=== PATIENT | male | born 1990 | race Caucasian/White ===

== ENCOUNTER 2025-02-07 12:54 | Outpatient (AMB) | payer BC, SELFPAY ==
--- NOTE | 2025-02-07 12:56 | MHC.PC.OV ---
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 Not on prescription medications. He was on antihypertensive and antidiabetic medication, including insulin until 6 years ago. 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 Prior PCP? - [facility] Last office visit/CPE/labs - 6 years ago Acute issue(s) - None Past Medical History - hypertension, type 2 diabetes, obesity, alcohol use disorder Surgical History - Adenoidectomy Family History - Dad: Diabetes, alcohol abuse - PGM: Hypertension Social History - Former smoker, smoked 0.5pd x 5-6 years, quit 4 years. Drinks 2-3 beers twice monthly. Denies recreational drug use. Vapes marijuana occasionally - Generally makes healthy dietary choices but eat large portions, consumes significant amount of salt and drinks 2 energy drinks daily. Active but does not exercise. Denies difficulty falling or staying asleep; sleeps 5-6 hours, snores, and never had a sleep study; declines referral for a sleep study Health maintenance - Last eye exam was several years ago. Referred to Ophthalmology for routine eye exam - Last dental visit was 5 years ago; encouraged to schedule an appointment with his dentist for routine dental care - Last tetanus vaccine was more than 10 years ago; declines Tdap - Has not been vaccinated for the flu this season; declines vaccination Specialists - None [facility] Medical History (Updated 02/07/25 @ 14:19 by Sherwin Waller CNP) Alcohol abuse High blood pressure Surgical History (Updated 02/07/25 @ 13:17 by Nasra Perales MA) History of adenoidectomy Family History (Updated 02/07/25 @ 13:14 by Nasra Perales MA) Father Alcohol abuse Diabetes Paternal Grandmother High blood pressure Social History (Updated 02/07/25 @ 13:05 by Nasra Perales MA) Housing: House Patient Tobacco Use Status: Never used Tobacco e-Cigarette/Vaping Use: Currently Using (meryjuana) Second Hand Smoke Exposure: No Substance Use Type: Marijuana service: No Current occupational status: employed 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 1. Little interest or pleasure in doing things: not at all 2. Feeling down, depressed, or hopeless: not at all 3. Trouble falling or staying asleep, or sleeping too much: not at all 4. Feeling tired or having little energy: several days 5. Poor appetite or overeating: nearly every day 6. Feeling bad about yourself - or that you are a failure or have let yourself or your family down: not at all 7. Trouble concentrating on things, such as reading the newspaper or watching television: not at all 8. Moving or speaking so slowly that other people could have noticed. Or the opposite - being so fidgety or restless that you have been moving around a lot more than usual: not at all 9. Thoughts that you would be better off or of hurting yourself in some way: not at all Total score: 4 Depression Screening Interpretation: Negative Depression Screening Done: Yes 65922 - PHQ-9 Billing: Yes Source: Developed by Drs. Humberto Nelson, Srhuthi Skelton, Valentín Hooks and colleagues, with an educational abdias from [employer]. Thrive Questionnaire Date Thrive assessed: 02/07/25 I am a: Patient What is your living situation today?: I have a steady place to live Within the past 12 months, did the food you bought not last and you didn't have the money to get more?: Never true Within the past 12 months, did you worry whether your food would run out before you got money to buy more?: Never true Do you have trouble paying for medicines?: No Do you have trouble getting transportation to medical appointments?: No Do you have trouble paying your heating and electricity bill?: No Do you have trouble taking care of your child, family member or friend?: No Do you have trouble with day-to-day activities such as bathing, preparing meals, shopping, managing finances, etc.?: No Are you currently unemployed and looking for a job?: No Are you interested in more education?: No Please select the resources that you would like help with: None Currently or been in a relationship where the following occur: No concerns reported THRIVE Score: 0 AUDIT C Alcohol Use Questionnaire (AUDIT-C) 1. How often do you have a drink containing alcohol?: Never 3. How often do you have six or more drinks on one occasion?: Never Total Score: 0 Score Reviewed/Action Taken: Yes TALON-7 AMB Questionnaire TALON-7 Date TALON - 7 assessed: 02/07/25 Feeling nervous, anxious, or on edge: 0 = Not at all Not being able to stop or control worryin = Not at all Worrying too much about different things: 0 = Not at all Trouble relaxin = Not at all Being so restless that it is hard to sit still: 0 = Not at all Becoming easily annoyed or irritable: 0 = Not at all Feeling afraid as if something awful might happen: 0 = Not at all Total TALON-7 score (0-4 normal; 5-9 mild; 10-14 moderate; 15-21 severe): 0 Source: Developed by Drs. Humberto Nelson, Shruthi Skelton, Valentín Hooks and colleagues, with an educational abdias from [employer]. TALON-7 Assessment Billing TALON-7 Assessment Tool: TLAON-7 Assessment 10147 Review of Systems Const Details: Denies chills, Denies fatigue, Denies fever(s), Denies headache(s) and Denies weakness HEENT Denies change in vision, Denies dizziness, Denies headache(s), Denies hearing loss, Denies nasal congestion, Denies sinus pain, Denies sinus pressure and Denies sore throat Card Denies chest pain, Denies lightheadedness, Denies dyspnea and Denies other (palpitations) Resp Denies cough, Denies dyspnea and Denies wheezing GI Denies abdominal pain, Denies melena, Denies hematochezia, Denies change in bowel habits, Denies dyspepsia and Denies nausea Denies hematuria and Denies dysuria Musc Denies abnormal gait, Denies myalgias, Denies arthralgias, Denies numbness and Denies tingling Skin/Breast Denies rash, Denies unusual bruising and Denies wounds Neuro Denies abnormal gait, Denies dizziness, Denies headache(s), Denies memory loss, Denies numbness, Denies Sensory deficit (Neuro), Denies tingling and Denies weakness Psych Denies anxiety, Denies depression and Denies memory loss Endo Denies cold intolerance, Denies fatigue, Denies heat intolerance, Denies polydipsia and Denies polyuria Christopher/Lymph Denies easy bleeding and Denies easy bruising Aller/Immun Denies wheezing Physical exam (Primary Care) Vital Signs: Last Vital Signs Temp 98.5 F 02/07/25 13:05 Pulse 68 02/07/25 13:05 Resp 16 02/07/25 13:05 BP 134/77 02/07/25 13:05 Pulse Ox 98 02/07/25 13:05 Oxygen Delivery Method Room Air 02/07/25 13:05 BMI result Body Mass Index 40.1 Tobacco/Smoking Status: Tobacco use Status Tobacco use date assessed 02/07/25 02/07/25 13:05 Patient Tobacco Use Status Never used Tobacco 02/07/25 13:05 e-Cigarette/Vaping Use Currently Using (meryjuana) 02/07/25 13:05 PHQ-9: PHQ-9 Score PHQ-9: Total score 4 02/07/25 13:01 Depression Screening Interpretation: Negative Thrive Assessment: Date of Thrive Assessment Date Thrive assessed 02/07/25 02/07/25 13:01 Currently or been in a relationship where the following occur: No concerns reported Const Other: General: no acute distress, well developed, alert and awake Nutritional Appearance: well nourished Orientation/consciousness: patient oriented x3 HENMT Head: Yes normocephalic and Yes atraumatic Ears: hearing grossly normal bilaterally and TM's normal bilaterally General nose exam: Normal external nose present and Normal nares present Mouth: Normal oral and palatal mucosa present and moist mucous membranes Teeth and gingiva: dentition normal Throat: Yes oropharynx normal Eyes Pupils: Equal, round and reactive pupils present and Pupil accommodation reflex normal EOM: EOMs intact bilaterally Neck Neck: Yes normal visual inspection, Yes no lymphadenopathy and Yes trachea midline Thyroid: Thyroid normal Carotids: no bruits Lymphatic: no lymphadenopathy noted Chest Chest palpation & inspection: normal inspection of the chest Resp Effort & Inspection: normal respiratory effort Auscultation: clear to auscultation bilaterally Cardio Rate: regular rate Rhythm: regular rhythm Heart sounds: S1 normal heart sound present, S2 normal heart sound present, no gallops, no murmurs and no rubs Bruits: no abdominal aortic bruits and no carotid bruits GI Palpation (GI): No Abdominal aortic bruit present, Soft to palpation, nontender, No hepatosplenomegaly present and No Rebound tenderness present Auscultation: normal bowel sounds General: Yes no CVA tenderness Back/Spine/Pelvis Back: no CVA tenderness Cervical Spine: cervical ROM normal and No Cervical spine tenderness Thoracic/Lumbar Spine: thoraco-lumbar ROM normal, No pain with thoraco-lumbar ROM, No thoracic spinal tenderness and No lumbar spinal tenderness Skin General: warm and dry. Normal skin color. Normal skin turgor Lesions: no lesions Rashes: no rashes Trauma: no lacerations or abrasions Wounds: no wounds Nails: normal Neuro General: patient oriented x3, gait normal and CN's II-XI intact bilaterally Cranial nerves: Yes Equal, round and reactive pupils present Cognition (Neuro): normal cognition Gait exam (Neuro): Normal gait present Motor exam (neuro): 5/5 motor strength present throughout Sensory Exam: No Sensory deficit (Neuro) Deep tendon reflexes (DTR's): Right patellar reflex intensity grade: 2+ and Left patellar reflex intensity grade: 2+ Extrem General: Yes normal to inspection, No edema and No calf tenderness Psych Appearance: grossly normal Affect: normal affect Attitude: cooperative Thought process: Normal thought process present Results AMB Hemoglobin A1c AMB Hemoglobin A1c 5.3 % Last Edit by Nasra Perales MA on 02/07/25 14:14 Coding Level of Care Code New Pt Level 4 (98104) New Pt Prev Care 18-39yr(23430 Diagnoses Normal physical examination, routine Z00.00 High blood pressure I10 Type 2 diabetes mellitus E11.9 Morbid obesity with BMI of 40.0-44.9, adult E66.01; Z68.41 Snoring R06.83 Laboratory tests ordered as part of a complete physical exam (CPE) Z00.00 Additional Codes TALON-7 Assessment Billing - TALON-7 Assessment Tool: TALON-7 Assessment 47532 ([id number]) PHQ-9 - 55605 - PHQ-9 Billing: Yes ([id number]) Assessment & Plan Assessment & Plan (1) Normal physical examination, routine: Code(s): Z00.00 - Encounter for general adult medical examination without abnormal findings Category: Medical Plan: No significant functional limitation noted. Healthy diet and routine exercise encouraged. Perform lab work and follow-up for a telehealth visit for labs review in 2-4 weeks. Return sooner with symptoms or concerns. Verbalized understanding and agreed with the plan. (2) High blood pressure: Code(s): I10 - Essential (primary) hypertension Category: Medical Plan: Resting blood pressure is 134/77, slightly above goal of less than 130/80, good control since A1c is 5.3%. He consumes significant amount of salt. Routine exercise and low-sodium diet encouraged. Verbalized understanding and agreed with the plan. (3) Type 2 diabetes mellitus: Code(s): E11.9 - Type 2 diabetes mellitus without complications Category: Medical Plan: A1c today is 5.3%, within goal of less than 7.0%. Excessive alcohol drinking may have been the culprit for his diabetes. He has been sober for the past 4 years. ADA diet and routine exercise encouraged. Referred to Ophthalmology for diabetic eye exam. Will recheck A1c in 3 months. Verbalized understanding and agreed with the plan. (4) Morbid obesity with BMI of 40.0-44.9, adult: Code(s): E66.01 - Morbid (severe) obesity due to excess calories; Z68.41 - Body mass index [BMI] 40.0-44.9, adult Category: Medical Plan: He currently weighs 287 lb, BMI is 40.1. He generally makes healthy dietary choices but eat large portions, consumes significant amount of salt and drinks 2 energy drinks daily. Active but does not exercise. Declines referral to client care coordinator/dietitian or weight management clinic and notes he will make healthy lifestyle changes. Healthy diet and routine exercise encouraged. Follow-up as needed. Verbalized understanding and agreed with the plan. (5) Snoring: Code(s): R06.83 - Snoring Category: Medical Plan: Denies difficulty falling or staying asleep; sleeps 5-6 hours, snores, and never had a sleep study; Declines referral for a sleep study. Instructed on sleep hygiene. Follow-up as needed. Verbalized understanding and agreed with the plan. (6) Laboratory tests ordered as part of a complete physical exam (CPE): Code(s): Z00.00 - Encounter for general adult medical examination without abnormal findings Category: Medical Plan: Fasting labs ordered as part of a complete physical exam. Advised to fast for at least 10 hours before getting labs drawn. May drink water Verbalized understanding and agreed with treatment plan. Orders: Orders UA CC w/rflx Micro + Cult Today Z00.00 - Encounter for general adult medical examination without abnormal findings Complete Blood Count Auto Diff Today Z00.00 - Encounter for general adult medical examination without abnormal findings Comprehensive [place]. Panel Fast Today Z00.00 - Encounter for general adult medical examination without abnormal findings Lipid Panel Today Z00.00 - Encounter for general adult medical examination without abnormal findings Microalbumin, Random (w Creat) Today Z00.00 - Encounter for general adult medical examination without abnormal findings TSH reflex Free T4 Today Z00.00 - Encounter for general adult medical examination without abnormal findings Vitamin D 25-OH Total Today Z00.00 - Encounter for general adult medical examination without abnormal findings AMB Hemoglobin A1c Today Z13.9 - Encounter for screening, unspecified Referrals Ophthalmology Referral E11.9 - Type 2 diabetes mellitus without complications
--- OUTSIDE RECORDS SUMMARY | 2025-02-07 12:57 | XMS_ITS | Clinical Summary ---
Author Organization [facility] Address [address] [place] [address] Care Team Providers Care Newscast Producer Name Role Phone Unavailable Primary Care Provider Unavailabl e Allergies No known active allergies Medications lidocaine (LIDODERM) 5 %Indications:[place] left-sided back pain with sciatica Place 1 patch over 12 hours onto the skin every 24 hours. Remove & Discard patch within 12 hours or as directed by 14 patch 1 11/22/2024 Active Encounters Date Type Department Care Team Description 11/22/2024 9:45 AM EDT Office Visit [facility] [address] [place] [address] Roger Hewitt PA Acute left-sided back pain with sciatica (Primary Dx) from Last 3 Months Family History Relation Name Status Comments Father Alive Mother Alive Social History Tobacco Use Types Packs/Day Years Used Date Smoking Tobacco: Never Smokeless Tobacco: Never Tobacco Cessation:Counseling Given: Not Answered Alcohol Use Standard Drinks/Week Comments Not Currently 0 (1 standard drink = 0.6 oz pur e alcohol) Sex and Gender Information Value Date Recorded Sex Assigned at Not on file Legal Sex Male 9:40 AM EDT Gender Identity Not on file Sexual Orientation Not on file Last Filed Vital Signs Vital Sign Reading Time Taken Comments Blood Pressure 155/94 11/22/2024 9:59 AM EDT Pulse 71 11/22/2024 9:59 AM EDT Temperature 36.7 C (98 F) 11/22/2024 9:59 AM EDT Respiratory Rate 18 11/22/2024 9:59 AM EDT Oxygen Saturation 98% 11/22/2024 9:59 AM EDT Inhaled Oxygen Concentration - - Weight 129.4 kg (285 lb 3.2 oz) 11/22/2024 9:59 AM EDT Height 180.3 cm (5' 11 ) 11/22/2024 9:59 AM EDT Body Mass Index 39.78 11/22/2024 9:59 AM EDT Plan of Treatment Health Maintenance Due Date Last Done Comments HIV screening 01/25/2001 Hepatitis C screening 01/25/2006 Covid-19 vaccine series (2023- season) 2024 Influenza vaccine 02/17/2025 06/03/2020 Tetanus adult (Td q 10,TDAP once) 06/03/2030 020 RSV Immunization (1 - 1-dose 75+ series) 01/25/2063 Meningococcal B Vaccine Aged Out No l onger eligible based on patient's age to complete this topic Meningococcal Vaccine Aged Out No yariel shoshana eligible based on patient's age to complete this topic Pneumococcal Vaccine (2 - 49 years) Aged Out No longer eligible b ased on patient's age to complete this topic Insurance [facility] BS
--- OUTSIDE RECORDS SUMMARY | 2025-02-07 12:57 | XMS_ITS ---
Author Name [facility] Organization Unknown History of Medication Use Medication Directions Dispensed Refills Start Date End Date Stat us lidocaine (LIDODERM) 5 % Place 1 patch over 12 hours onto the skin every 24 hours. Remove & Discard patch within 12 hours or as directed by 11/22/2024 active methocarbamoL (ROBAXIN) 750 mg tablet Take 1 tablet (750 mg total) by mouth 4 (four) times daily for 10 days. 11/22/2024 active predniSONE (DELTASONE) 20 mg tablet Take 1 tablet (20 mg total) by mouth 2 (two) times daily for 5 days. Take with food. 11/22/2024 active Problems Problem Status Onset Date Problem Type Date of Resoluti on Source Acute left-sided back pain with sciatica active EncounterDiagnosisAct [facility] Acute left-sided back pain with sciatica active EncounterDiagnosisAct [facility] Encounters Encounter Type Encounter Reason Primary Diagnosis Location Date Ambulatory Sciatica Sciatica [facility] 11/23/19 25 Care Team Organization Name Specialty Phone Email Start Date End Da sourav [facility] 11/22/2024
[2025-02-07 13:05] VITALS: BP 134/77; PULSE 68; RESP 16; TEMP 36.9; O2SAT 98; BMI 40.1
== END 2025-02-07 14:16 | disposition home or self-care (01) ==
LOC: HO.HMCFM 12:55
PROVIDERS: PCP Nurse Practitioner Family; Visit Provider Nurse Practitioner Family
DX: Z00.00 Encounter for general adult medical examination without abnormal findings (principal); E11.9 Type 2 diabetes mellitus without complications; E66.01 Morbid (severe) obesity due to excess calories; Z68.41 Body mass index [BMI] 40.0-44.9, adult; I10 Essential (primary) hypertension; R06.83 Snoring

== ENCOUNTER → 2025-02-07 12:54 | Outpatient (BNVA) | payer BC, SELFPAY | PROVIDERS: PCP Nurse Practitioner Family; Visit Provider Nurse Practitioner Family | DX: Z00.00 Encounter for general adult medical examination without abnormal findings (principal); E66.01 Morbid (severe) obesity due to excess calories; E11.9 Type 2 diabetes mellitus without complications; I10 Essential (primary) hypertension; Z68.41 Body mass index [BMI] 40.0-44.9, adult | CPT/HCPCS: 83036; 96127 ==